=== PATIENT | female | born 1950 | race Caucasian/White ===

== ENCOUNTER 2017-11-22 14:56 | Inpatient (IN) | payer MEDICARE, BC ==
[~2017-11-22] VITALS: Ht 162.6 cm; Wt 54.5 kg
[~2017-11-22 14:56] MED LIST: ASPI-1265 PO; CHOL10002 PO; CYAN-19 PO; K, MAG and/or Phos replacement - Verify level? MC SCH; RIVA15TA PO; SAFF176. PO; TURM500C7 PO
[2017-11-22] MEDS ORDERED: LORazepam 2 mg/ml vial IV ONE (15:20)
[2017-11-22] MEDS ORDERED: iohexol 350MG/ML 100ml bottle IV ONE (15:45)
[2017-11-22] MEDS ORDERED: normal saline 1000ml 1,000 ML IV ONE ×2 (15:50→16:40)
[2017-11-22 15:55] LABS: ABG BASE EXCESS -6.5 mmol/L (-2.0-3.0); ABG HCO3 16.1 mmol/L (22.0-26.0); ABG OXYGEN SATURATION 91.5 % (95-98); ABG PCO2 (T) 26.8 mmHg (32.0-45.0); ABG PO2 (T) 63.1 mmHg (83-108); ALLEN'S TEST Positive; FCOHb 0.8 % (0.5-1.5); FLOW 4 L/min; FMetHb 0.1 % (0.3-1.12); FO2Hb 90.7 % (94-100); PATIENT TEMPERATURE 37.5; RESPIRATORY RATE (OBSERVED) 28 b/min; TOTAL HEMOGLOBIN 16.7 G/dl (12.0-16.0)
[2017-11-22 16:02] LABS: BASOPHILS % (AUTO) 0 % (0-1); EOSINOPHILS # (AUTO) 0.4 X10'3 (0-0.9); EOSINOPHILS % (AUTO) 1.5 % (0-6); HEMATOCRIT 47.9 % (35.0-45.0); HEMOGLOBIN 16.5 g/dl (12.0-16.0); LYMPHOCYTES # (AUTO) 2.5 X10'3 (1.1-4.8); LYMPHOCYTES % (AUTO) 8.8 % (21-51); MEAN CORPUSCULAR HEMOGLOBIN 31.3 PG (27.0-31.0); MEAN CORPUSCULAR HGB CONC 34.3 % (33.0-36.5); MEAN PLATELET VOLUME 7.3 FL (7.4-10.4); MONOCYTES # (AUTO) 1.2 X10'3 (0-0.9); MONOCYTES % (AUTO) 4.3 % (2-12); NEUTROPHILS # (AUTO) 24.1 X10'3 (1.8-7.7); NEUTROPHILS % (AUTO) 85.4 % (42-75); PLATELET COUNT 498 X10'3 (140-440); RED BLOOD COUNT 5.26 X10'6 (4.20-5.60); RED CELL DISTRIBUTION WIDTH 13.8 % (11.5-14.5)
[2017-11-22 16:04] LABS: WHITE BLOOD COUNT 28.3 X10'3 (4.5-11.0)
[2017-11-22 16:20] LABS: INR 1.1 INR; PARTIAL THROMBOPLASTIN TIME 29 SECONDS (22-32); PROTHROMBIN TIME 11.6 SECONDS (9.0-12.0)
[2017-11-22 16:22] LABS: TOTAL CELLS COUNTED 100
[2017-11-22 16:24] LABS: PLATELET ESTIMATE INCREASED
[2017-11-22 16:27] LABS: ANION GAP 17 (8-16); CHLORIDE 101 MMOL/L (99-107); GLUCOSE 252 MG/DL (70-104); SODIUM 141 MMOL/L (135-145); TOTAL CARBON DIOXIDE 22.8 MMOL/L (24-32)
[2017-11-22 16:28] LABS: ALANINE AMINOTRANSFERASE 25 U/L (12-78); ALBUMIN 3.4 G/DL (3.4-5.0); ALBUMIN/GLOBULIN RATIO 0.8 (1.1-1.5); ALKALINE PHOSPHATASE 104 IU/L (46-116); ASPARTATE AMINO TRANSFERASE 36 U/L (10-37); BILIRUBIN,TOTAL 0.7 MG/DL (0.1-1.0); BLOOD UREA NITROGEN 19 MG/DL (7-18); BUN/CREATININE RATIO 15.4 (6.6-38.0); CALCIUM 9.4 MG/DL (8.5-10.1); CREATININE 1.23 MG/DL (0.40-0.90); POTASSIUM 4.5 MMOL/L (3.5-5.1); TOTAL PROTEIN 7.6 G/DL (6.4-8.2); eGFR 44 ML/MIN
[2017-11-22] MEDS ORDERED: CefTRIAXone 2gm/NS 100ml IVPB 100 ML IV ONE (16:40)
[2017-11-22 17:19] LABS: CLARITY,URINE SLIGHTLY CLOUDY (Clear); COLOR,URINE STRAW (Yellow); GLUCOSE, URINE NEGATIVE (Neg); KETONES,URINE NEGATIVE (Neg); LEUKOCYTE ESTERASE ,URINE NEGATIVE (Neg); NITRITES, URINE NEGATIVE (Neg); OCCULT BLOOD,URINE SMALL (Neg); PROTEIN,URINE 30 mg/dl (Neg); UROBILINOGEN,URINE 0.2 E.U/dL (0.2-1.0)
[2017-11-22 17:21] LABS: UA COLLECTION TYPE STRAIGHT CATH
[2017-11-22] MEDS ORDERED: potassium Cl 20 mEq SR tablet PO PRN ×2 (17:35)
[2017-11-22] MEDS ORDERED: sodium phosphate inj. 30 MMOL in dextrose 5%-water 250 ML IV PRN (17:35)
[2017-11-22] MEDS ORDERED: magnesium Cl slow-release 64mg tablet PO PRN (17:35)
[2017-11-22] MEDS ORDERED: magnesium 4gm in 100ml NS 100 ML IV PRN (17:35)
[2017-11-22] MEDS ORDERED: acetaminophen 325mg tablet PO PRN ×2 (17:35)
[2017-11-22] MEDS ORDERED: magnesium 2GM in 50ml NS 50 ML IV PRN (17:35)
[2017-11-22] MEDS ORDERED: sodium phosphate inj. 15 MMOL in dextrose 5%-water 150 ML IV PRN (17:35)
[2017-11-22] MEDS ORDERED: ondansetron/PF 4mg/2ml inj IV PRN (17:35)
[2017-11-22] MEDS ORDERED: Neutra Phos packet PO PRN (17:35)
[2017-11-22 17:48] LABS: AMORPHOUS URATES 1+; BACTERIA,URINE NONE SEEN /HPF (Neg); MUCUS STRANDS NONE SEEN /LPF (Neg); SQUAMOUS EPITHELIAL CELL,UR MODERATE /LPF (FEW)
[2017-11-22] MEDS ORDERED: heparin 10,000 units/1 ML INJ IV ONE (18:00)
[2017-11-22] MEDS ORDERED: heparin 10,000 units/1 ML INJ IV PRN (18:00)
[2017-11-22 19:15] VITALS: BP 95/32
[2017-11-22 19:30] VITALS: BP 99/23
[2017-11-22 19:45] VITALS: BP 171/83
[2017-11-22 20:00] VITALS: BP 103/73
[2017-11-22 20:15] VITALS: BP 73/21
[2017-11-22] MEDS ORDERED: morphine 4 MG/ML inj SYRINge IV PRN (20:15)
[2017-11-22] MEDS ORDERED: morphine 2 MG/ML inj. syringe IV PRN (20:15)
[2017-11-25 11:20] LABS: ANTITHROMBIN ACTIVITY 110 % (75-135); ANTITHROMBIN ANTIGEN 100 % (72-124); DILUTE RUSSELL'S VIPER VENOM 54.4 sec (0.0-47.0); PROTEIN S, FREE 105 % (57-157); PROTEIN S, TOTAL 128 % (60-150)
[2017-11-26 12:41] LABS: OCCULT BLOOD STOOL NEGATIVE (Neg)
== END 2017-11-22 20:35 | disposition expired | DRG 175 ==
LOC: ER 14:57 → ED HOLD 17:55 → ICU 2S 18:57
PROC: B32T1ZZ Computerized Tomography (CT Scan) of Left Pulmonary Artery using Low Osmolar Contrast (ICD-10-PCS; principal; 2017-11-22)
PROC: B3201ZZ Computerized Tomography (CT Scan) of Thoracic Aorta using Low Osmolar Contrast (ICD-10-PCS; 2017-11-22)
PROC: B32S1ZZ Computerized Tomography (CT Scan) of Right Pulmonary Artery using Low Osmolar Contrast (ICD-10-PCS; 2017-11-22)
DX: I26.99 Other pulmonary embolism without acute cor pulmonale (principal); R65.11 Systemic inflammatory response syndrome (SIRS) of non-infectious origin with acute organ dysfunction; R57.8 Other shock; G93.41 Metabolic encephalopathy; E87.2 Acidosis; D68.59 Other primary thrombophilia; G30.9 Alzheimer's disease, unspecified; F02.80 Dementia in other diseases classified elsewhere, unspecified severity, without behavioral disturbance, psychotic disturbance, mood disturbance, and anxiety; I27.82 Chronic pulmonary embolism; R73.9 Hyperglycemia, unspecified; R74.8 Abnormal levels of other serum enzymes; D72.829 Elevated white blood cell count, unspecified; I46.9 Cardiac arrest, cause unspecified; Z66 Do not resuscitate; Z51.5 Encounter for palliative care; Z88.1 Allergy status to other antibiotic agents; Z88.2 Allergy status to sulfonamides; Z88.8 Allergy status to other drugs, medicaments and biological substances; Z79.899 Other long term (current) drug therapy; Z79.82 Long term (current) use of aspirin
CPT/HCPCS: 36415; 36600; 71045; 71275; 80053; 81001; 81479; 82272; 82803; 83605; 83880; 83891; 83894; 83898; 84484; 85018; 85025; 85240; 85300; 85301; 85303; 85305; 85306; 85597; 85610; 85730; 86146; 86147; 87040; 87070; 87077; 87088; 87186; 93005; 93306; 93970; 96365; 96375; 99291; 99292; A6213; J0696; J1644; J2060; J7030; Q9967